=== PATIENT | female | born 1970 | race Caucasian/White ===

== ENCOUNTER 2020-12-02 07:51 | Day surgery (SDC) | payer MEDICAID ==
[2020-11-28 14:54] LABS: COVID AG,FIA SOURCE NASOPHARYNGEAL
[~2020-12-02] VITALS: Ht 152.4 cm; Wt 85.9 kg
[~2020-12-02 07:51] MED LIST: SODIUM CHLORIDE 0.9% 1,000 ML ONE
[2020-12-02] MEDS ORDERED: PROPOFOL 1% 20 ML VIAL IVP ONE ×2 (07:52)
[2020-12-02] MEDS ORDERED: SODIUM CHLORIDE 0.9% 1,000 ML IV ONE (08:00)
== END 2020-12-02 11:05 | disposition home or self-care (01) ==
LOC: SURGERY 07:51
PROVIDERS: ATTEND Student in an Organized Health Care Education/Training Program
DX: K21.9 Gastro-esophageal reflux disease without esophagitis (principal); K44.9 Diaphragmatic hernia without obstruction or gangrene; K29.70 Gastritis, unspecified, without bleeding; K31.89 Other diseases of stomach and duodenum; Z91.013 Allergy to seafood; Z79.899 Other long term (current) drug therapy; Z98.890 Other specified postprocedural states; K29.50 Unspecified chronic gastritis without bleeding
CPT/HCPCS: 43239; 87426; 88305; 88312; 88313; C1769; C9803; J2704; J7030